=== PATIENT | female | born 1980 | race Two or more races ===

== ENCOUNTER 2020-11-12 19:14 | Emergency (ER) | payer BC ==
[~2020-11-12] VITALS: Ht 175.3 cm; Wt 81.8 kg
[2020-11-12 19:40] VITALS: BP 103/64
[2020-11-12] MEDS ORDERED: HYDROcodone/acetaminophen 10/325mg tab PO ONE (20:30)
[2020-11-12] MEDS ORDERED: ondansetron 4mg rapidly disintigrating tab PO ONE (20:30)
[2020-11-12] MEDS ORDERED: HYDR-3965 PO (21:25)
== END 2020-11-12 21:53 | disposition home or self-care (01) ==
LOC: ER 19:15
DX: S52.502A Unspecified fracture of the lower end of left radius, initial encounter for closed fracture (principal); M25.532 Pain in left wrist; Z88.0 Allergy status to penicillin; Z79.899 Other long term (current) drug therapy; W18.39XA Other fall on same level, initial encounter; Y93.89 Activity, other specified; Y92.89 Other specified places as the place of occurrence of the external cause; Y99.8 Other external cause status
CPT/HCPCS: 29125; 73110; 99284

== ENCOUNTER 2020-11-15 12:54 | Emergency (ER) | payer BC ==
[~2020-11-15] VITALS: Ht 175.3 cm; Wt 81.8 kg
[~2020-11-15 12:54] MED LIST: HYDR-3965 PO
[2020-11-15 13:01] VITALS: BP 114/74
== END 2020-11-15 14:03 | disposition home or self-care (01) ==
LOC: ER 12:55 → EEVIPCON 12:55 → ER 14:03
DX: S52.502G Unspecified fracture of the lower end of left radius, subsequent encounter for closed fracture with delayed healing (principal); M25.532 Pain in left wrist; Z88.0 Allergy status to penicillin; Z79.899 Other long term (current) drug therapy; X58.XXXD Exposure to other specified factors, subsequent encounter
CPT/HCPCS: 73110; 99283

== ENCOUNTER 2020-11-22 10:12 | Outpatient (CLI) | payer BC | END 2020-11-22 23:59 | disposition home or self-care (01) | LOC: RAD 10:12 | PROVIDERS: ATTEND Orthopaedic Surgery | DX: S52.502A Unspecified fracture of the lower end of left radius, initial encounter for closed fracture (principal); X58.XXXA Exposure to other specified factors, initial encounter; Y93.89 Activity, other specified; Y92.89 Other specified places as the place of occurrence of the external cause; Y99.8 Other external cause status | CPT/HCPCS: 73110 ==

== ENCOUNTER 2020-12-06 09:40 | Outpatient (CLI) | payer BC | END 2020-12-06 23:59 | disposition home or self-care (01) | LOC: RAD 09:40 | PROVIDERS: ATTEND Orthopaedic Surgery | DX: S52.502A Unspecified fracture of the lower end of left radius, initial encounter for closed fracture (principal); X58.XXXA Exposure to other specified factors, initial encounter; Y93.89 Activity, other specified; Y92.89 Other specified places as the place of occurrence of the external cause; Y99.8 Other external cause status | CPT/HCPCS: 73110 ==

== ENCOUNTER 2020-12-20 13:31 | Outpatient (CLI) | payer BC | END 2020-12-20 23:59 | disposition home or self-care (01) | LOC: LAB 13:31 | PROVIDERS: ATTEND Orthopaedic Surgery | DX: S52.92XA Unspecified fracture of left forearm, initial encounter for closed fracture (principal); M79.89 Other specified soft tissue disorders; X58.XXXA Exposure to other specified factors, initial encounter; Y93.89 Activity, other specified; Y92.89 Other specified places as the place of occurrence of the external cause; Y99.8 Other external cause status | CPT/HCPCS: 73110 ==

== ENCOUNTER 2021-01-17 09:50 | Outpatient (CLI) | payer BC | END 2021-01-17 23:59 | disposition home or self-care (01) | LOC: RAD 09:50 | PROVIDERS: ATTEND Orthopaedic Surgery | DX: S52.502A Unspecified fracture of the lower end of left radius, initial encounter for closed fracture (principal); X58.XXXA Exposure to other specified factors, initial encounter; Y93.89 Activity, other specified; Y92.89 Other specified places as the place of occurrence of the external cause; Y99.8 Other external cause status | CPT/HCPCS: 73110 ==

== ENCOUNTER 2021-02-18 08:43 | Outpatient (CLI) | payer BC | END 2021-02-18 23:59 | disposition home or self-care (01) | LOC: RAD 08:43 | PROVIDERS: ATTEND Orthopaedic Surgery | DX: S52.92XD Unspecified fracture of left forearm, subsequent encounter for closed fracture with routine healing (principal); X58.XXXD Exposure to other specified factors, subsequent encounter | CPT/HCPCS: 73110 ==